=== PATIENT | female | born 1975 | race Caucasian/White ===

== ENCOUNTER 2016-07-28 11:39 | Emergency (ER) | payer SELFPAY ==
[~2016-07-28] VITALS: Ht 160 cm; Wt 92.0 kg
[2016-07-28 11:41] VITALS: BP 144/94; PULSE 108; RESP 15; TEMP 98.5; O2SAT 98
--- NOTE | 2016-07-28 11:43 | PD ---
Physical Exam Time Seen by Provider: 11:41 Narrative 40 y/o female presents for evaluation of cough, some pain when she coughs. Cough is nonproductive. Endorses nasal congestion. Symptom duration 5 days. Vital signs reviewed. Seen at triage desk. Awaiting bed placement. Data Data Last Documented VS Vital Signs Date Time Temp Pulse Resp B/P Pulse Ox O2 Delivery O2 Flow Rate FiO2 07/28/16 11:41 98.5 108 15 144/94 98 MDM Medical Record Reviewed: Yes Supervised Visit with YUNG: No Scripts No Active Prescriptions or Reported Meds David Zuniga July 28, 2016 11:43
--- NOTE | 2016-07-28 11:53 | PD ---
HPI Chief Complaint: Cold / Flu Symptoms Time Seen by Provider: 11:52 Travel History International Travel<30 days: No Contact w/Intl Traveler<30days: No Traveled to known affect area: No History of Present Illness HPI 40-year-old female came to the emergency room with history of pleuritic right- sided chest pain. Patient says that she has been coughing for past 3-4 days. Her came in for same complain and is being seen as well. They drove from [place] last week and are here on vacation. Patient says that she started developing right-sided chest pain especially when she coughs. Started yesterday and the pain is worse today. She is not bringing out any phlegm. She is otherwise a healthy person. Patient is a smoker. She said yesterday she had fever and chills although she did not take her temperature. Currently she is afebrile. She did take Advil and Tylenol PM this morning. PFSH Past Medical History Narrative Medical List of her home medications reviewed from the nursing note. Diminished Hearing: No GERD: Yes Genitourinary: Yes (UTI, KIDNEY INFECTION) Kidney Stones: Yes Pneumonia: Yes ?: Not LMP: now : 5 Para: 5 Social History Alcohol Use: No Tobacco Use: Yes (<1 ppd) Substance Use: No Allergies-Medications (Allergen,Severity, Reaction): Coded Allergies: No Known Allergies (Unverified , 07/28/16) Comments No known drug allergies. Reported Meds & Prescriptions Reported Meds & Active Scripts Active Ventolin Hfa 18 GM Inh (Albuterol Sulfate) 90 Mcg/Act Aer 2 Puff INH Q4-6H PRN Ibuprofen 600 Mg Tab 600 Mg PO Q6H PRN 7 Days Zithromax Z-Mekhi (Azithromycin) 250 Mg Dspk 250 Mg PO DIRECTED 500 MG (2 tabs) day 1, then 1 tab days 2-5. Narrative Medication List of her home medications reviewed from the nursing note. Review of Systems Except as stated in HPI: all other systems reviewed are Neg Physical Exam Narrative GENERAL: Awake, alert, anxious, mild distress SKIN: Focused skin assessment warm/dry. HEAD: Atraumatic. Normocephalic. EYES: Pupils equal and round. No scleral icterus. No injection or drainage. ENT: No nasal bleeding or discharge. Mucous membranes pink and moist. NECK: Trachea midline. No JVD. CARDIOVASCULAR: Regular rate and rhythm. No murmur appreciated. RESPIRATORY: No accessory muscle use. Clear to auscultation. Breath sounds equal bilaterally. GASTROINTESTINAL: Abdomen soft, non-tender, nondistended. Hepatic and splenic margins not palpable. MUSCULOSKELETAL: No obvious deformities. No clubbing. No cyanosis. No edema. NEUROLOGICAL: Awake and alert. No obvious cranial nerve deficits. Motor grossly within normal limits. Normal speech. PSYCHIATRIC: Appropriate mood and affect; insight and judgment normal. Data Data Last Documented VS Vital Signs Date Time Temp Pulse Resp B/P Pulse Ox O2 Delivery O2 Flow Rate FiO2 07/28/16 13:04 98 Room Air 07/28/16 11:41 98.5 108 15 144/94 Orders Chest, Pa & Lat (07/28/16 ) Albuterol Neb (Albuterol Neb) (07/28/16 12:00) Ibuprofen (Motrin) (07/28/16 12:00) Electrocardiogram (07/28/16 11:58) Basic Metabolic Panel (Bmp) (07/28/16 11:58) Complete Blood Count With Diff (07/28/16 11:58) Troponin I (07/28/16 11:58) Ecg Monitoring (07/28/16 11:58) Bilateral Bp Monitoring (07/28/16 11:58) Iv Access Insert/Monitor (07/28/16 11:58) Oximetry (07/28/16 11:58) Oxygen Administration (07/28/16 11:58) Sodium Chloride 0.9% Flush (Ns Flush) (07/28/16 12:00) Blood Culture (07/28/16 12:44) Ceftriaxone Inj (Rocephin Inj) (07/28/16 12:45) Azithromycin Inj (Zithromax Inj) (07/28/16 12:45) Morphine Inj (Morphine Inj) (07/28/16 13:30) Labs Laboratory Tests Test 07/28/16 12:40 White Blood Count 4.1 TH/MM3 Red Blood Count 4.42 MIL/MM3 Hemoglobin 14.7 GM/DL Hematocrit 42.6 % Mean Corpuscular Volume 96.4 FL Mean Corpuscular Hemoglobin 33.2 PG Mean Corpuscular Hemoglobin 34.4 % Concent Red Cell Distribution Width 12.7 % Platelet Count 182 TH/MM3 Mean Platelet Volume 8.7 FL Neutrophils (%) (Auto) 65.2 % Lymphocytes (%) (Auto) 20.1 % Monocytes (%) (Auto) 12.8 % Eosinophils (%) (Auto) 1.3 % Basophils (%) (Auto) 0.6 % Neutrophils # (Auto) 2.7 TH/MM3 Lymphocytes # (Auto) 0.8 TH/MM3 Monocytes # (Auto) 0.5 TH/MM3 Eosinophils # (Auto) 0.1 TH/MM3 Basophils # (Auto) 0.0 TH/MM3 CBC Comment DIFF FINAL Differential Comment Sodium Level 139 MEQ/L Potassium Level 4.4 MEQ/L Chloride Level 106 MEQ/L Carbon Dioxide Level 25.5 MEQ/L Anion Gap 8 MEQ/L Blood Urea Nitrogen 17 MG/DL Creatinine 0.99 MG/DL Estimat Glomerular Filtration 62 ML/MIN Rate Random Glucose 102 MG/DL Calcium Level 8.3 MG/DL Troponin I LESS THAN 0.02 NG/ML MDM Medical Decision Making Medical Screen Exam Complete: Yes Emergency Medical Condition: Yes Medical Record Reviewed: Yes Interpretation(s) Twelve-lead EKG was reviewed by me. Sinus rhythm, normal axis, nonspecific ST- T wave changes. Heart rate of 82 bpm. Differential Diagnosis PE, pneumonia, nonspecific chest, bronchitis, COPD exacerbation Narrative Course 1 PM initially I had ordered a d-dimer since patient has a lower risk for PE. However the chest x-ray came back and shows infiltrate in the right upper and middle lobe. In which case that coincides with the location of her chest pain. I have canceled the d-dimer. Awaiting for the rest of the blood test results to come back. Ordered Motrin for her pain and albuterol nebulizer as well. 2 PM patient was given IV Rocephin and IV Zithromax for the pneumonia. She asked for something stronger for pain and I had ordered morphine. Labs are back and within acceptable limits. I will discharge her home. Procedures EKG Prior to Arrival: No Diagnosis Primary Impression: Pneumonia Qualified Code: J18.9 - Pneumonia of right lung due to infectious organism, unspecified part of lung Additional Impression: Pleuritic chest pain Referrals: Primary Care Physician 1 week Additional Instructions: Please return to the ER if the condition worsens or any other new concerns. Otherwise follow-up with your primary care. The body aches as per the prescription directions. Med/Other Pt SpecificInfo: Prescription(s) given Scripts Albuterol 18 GM Inh (Ventolin Hfa 18 GM Inh)90 Mcg/Act Aer2 Puff INH Q4-6H PRN ( SHORTNESS OF BREATH) #1 INHALER Ref 0 Prov:Murali Roman MD 07/28/16 Ibuprofen 600 Mg [id number] Mg PO Q6H PRN (Pain/Inflammation) 7 Days Ref 0 Prov:Murali Roman MD 07/28/16 Azithromycin (Zithromax Z-Mekhi)250 Mg [id number] Mg PO DIRECTED #1 DSPK Ref 0 500 MG (2 tabs) day 1, then 1 tab days 2-5. Prov:Murali Roman MD 07/28/16 Disposition: 01 DISCHARGE HOME Condition: Stable Murali Roman MD July 28, 2016 11:53
[2016-07-28] MEDS ORDERED: RESP: ALBUTEROL 2.5 MG/3 ML NEB (SCH) NEB ONE (12:00)
[2016-07-28] MEDS ORDERED: IBUPROFEN 800 MG TAB PO ONE (12:00)
[2016-07-28] MEDS ORDERED: SODIUM CHLORIDE 0.9% FLUSH 10 ML FLUSH IVF PRN (12:00)
--- NOTE | 2016-07-28 12:43 | RADRPT ---
EXAM DATE/TIME: 07/28/2016 12:31 [facility] COMPARISON: No previous studies available for comparison. INDICATIONS : Cough for 4 days and chest pain. MEDICAL HISTORY : Asthma. Smoker. SURGICAL HISTORY : None. ENCOUNTER: Initial ACUITY: 4 - 6 days PAIN SCORE: 9/10 LOCATION: Right lower chest FINDINGS: There is mild infiltrate in the right midlung. No evidence of effusion. Cardiac contours are satisfac tory. Thoracic skeleton is intact. CONCLUSION: Mild right upper and middle lobe infiltrate. Eagle Hull MD on July 28, 2016 at 12:39 Board Certified Radiologist. This report was verified electronically.
[2016-07-28] MEDS ORDERED: cefTRIAXone INJ 1,000 MG in SODIUM CHLORIDE 0.9% INJ 50 ML IV ONE (12:45)
[2016-07-28] MEDS ORDERED: AZITHROMYCIN INJ 500 MG in SODIUM CHLOR 0.9% 250 ML INJ 250 ML IV ONE (12:45)
[2016-07-28 13:07] LABS: AUTOMATED NEUTROPHIL # 2.7 TH/MM3 (1.8-7.7); BASOPHIL % 0.6 % (0.0-2.0); EOSINOPHIL # 0.1 TH/MM3 (0-0.4); EOSINOPHIL % 1.3 % (0.0-4.0); HEMATOCRIT 42.6 % (35.0-46.0); HEMO FLAGS DIFF FINAL; LYMPH % 20.1 % (9.0-44.0); LYMPHOCYTE # 0.8 TH/MM3 (1.0-4.8); MEAN CELL VOLUME 96.4 FL (80.0-100.0); MEAN CORPUSCULAR HEMOGLOBIN 33.2 PG (27.0-34.0); MEAN CORPUSCULAR HGB CONC 34.4 % (32.0-36.0); MONO % 12.8 % (0.0-8.0); NEUT % 65.2 % (16.0-70.0); PLATELET COUNT 182 TH/MM3 (150-450); RED BLOOD COUNT 4.42 MIL/MM3 (4.00-5.30); RED CELL DISTRIBUTION WIDTH 12.7 % (11.6-17.2); WHITE BLOOD COUNT 4.1 TH/MM3 (4.0-11.0)
[2016-07-28] MEDS ORDERED: MORPHINE SULFATE 4 MG/ML INJ IV PUSH ONE (13:30)
[2016-07-28 13:49] LABS: ANION GAP 8 MEQ/L (5-15); BICARBONATE 25.5 MEQ/L (21.0-32.0); BLOOD UREA NITROGEN 17 MG/DL (7-18); CHLORIDE 106 MEQ/L (98-107); GLOMERULAR FILTRATION RATE 62 ML/MIN (>89); SODIUM (NA) 139 MEQ/L (136-145)
[2016-07-28 13:50] LABS: POTASSIUM 4.4 MEQ/L (3.5-5.1)
[2016-07-28] MEDS ORDERED: ZITHTAB PO (14:01)
[2016-07-28] MEDS ORDERED: IBUP-232 PO (14:03)
[2016-07-28] MEDS ORDERED: VENTAER INH (14:03)
--- NOTE | 2016-07-29 18:50 | EKG ---
Date Performed: 07/28/2016 Time Performed: 12:48:03 PTAGE: 40 years EKG: Sinus rhythm MINIMAL VOLTAGE CRITERIA FOR LVH, CONSIDER NORMAL VARIANT BORDERLINE ECG NO PREVIOUS TRACING DOCTOR: Paulo Sin Interpretating Date/Time 07/29/2016 18:44:46
== END 2016-07-28 14:56 | disposition home or self-care (01) ==
LOC: NEPD 11:39
DX: J18.9 Pneumonia, unspecified organism (principal); R07.81 Pleurodynia; R94.31 Abnormal electrocardiogram [ECG] [EKG]; Z72.0 Tobacco use; Z87.19 Personal history of other diseases of the digestive system; Z87.448 Personal history of other diseases of urinary system; Z87.01 Personal history of pneumonia (recurrent)
CPT/HCPCS: 71020; 80048; 84484; 85025; 87040; 93005; 94664; 96365; 96375; 99284; J0456; J0696; J2270; J7050; J7613

== ENCOUNTER 2016-08-02 12:33 | Emergency (ER) | payer SELFPAY ==
[~2016-08-02] VITALS: Ht 160 cm; Wt 100.0 kg
[~2016-08-02 12:33] MED LIST: IBUP-232 PO; VENTAER INH; ZITHTAB PO
[2016-08-02 12:34] VITALS: BP 141/98; PULSE 89; RESP 17; TEMP 97.6; O2SAT 98
--- NOTE | 2016-08-02 12:53 | PD ---
HPI Chief Complaint: Respiratory Symptoms Time Seen by Provider: 12:50 Travel History International Travel<30 days: No Contact w/Intl Traveler<30days: No Traveled to known affect area: No History of Present Illness HPI Patient is a 40-year-old female presenting to emergency evaluation of shortness of breath and left-sided rib pain. Patient states she was diagnosed with pneumonia one week ago, completed a full course of antibiotics and has been using an albuterol inhaler however she continues to have a productive cough with black sputum per her report. She denies any fevers. Reports chills and shortness of breath. She last used her inhaler this morning. She denies any other complaints at this time, no dizziness, no chest pain, no headaches, no abdominal pain, no nausea, vomiting, no diarrhea. Patient continues to smoke intermittently but has significantly reduced her intake. [facility] Past Medical History Asthma: Yes Diminished Hearing: No GERD: Yes Genitourinary: Yes (UTI, KIDNEY INFECTION) Kidney Stones: Yes Pneumonia: Yes ?: Not : 5 Para: 5 Social History Alcohol Use: No Tobacco Use: Yes (<1 ppd) Substance Use: No Allergies-Medications (Allergen,Severity, Reaction): Coded Allergies: No Known Allergies (Unverified , 07/28/16) Reported Meds & Prescriptions Reported Meds & Active Scripts Active Ventolin Hfa 18 GM Inh (Albuterol Sulfate) 90 Mcg/Act Aer 2 Puff INH Q4-6H PRN Review of Systems Except as stated in HPI: all other systems reviewed are Neg General / Constitutional: Positive: Chills, No: Fever HENT: No: Headaches, Lightheadedness Cardiovascular: No: Chest Pain or Discomfort, Dyspnea on exertion Respiratory: Positive: Cough, Shortness of Breath, Wheezing, Pleuritic Pain Gastrointestinal: No: Nausea, Vomiting, Abdominal Pain Musculoskeletal: No: Myalgias Neurologic: No: Weakness, Dizziness Physical Exam Narrative GENERAL: Well-developed, well-nourished, alert female. Resting comfortably in no acute distress. SKIN: Focused skin assessment warm/dry. HEAD: Atraumatic. Normocephalic. EYES: Pupils equal and round. No scleral icterus. No injection or drainage. ENT: No nasal bleeding or discharge. Mucous membranes pink and moist. NECK: Trachea midline. No JVD. CARDIOVASCULAR: Regular rate and rhythm. No murmur appreciated. RESPIRATORY: No accessory muscle use. Clear to auscultation. Breath sounds equal bilaterally. GASTROINTESTINAL: Abdomen soft, non-tender, nondistended. Hepatic and splenic margins not palpable. MUSCULOSKELETAL: No obvious deformities. No clubbing. No cyanosis. No edema. NEUROLOGICAL: Awake and alert. No obvious cranial nerve deficits. Motor grossly within normal limits. Normal speech. PSYCHIATRIC: Appropriate mood and affect; insight and judgment normal. Data Data Last Documented VS Vital Signs Date Time Temp Pulse Resp B/P Pulse Ox O2 Delivery O2 Flow Rate FiO2 08/02/16 13:00 80 20 98 Room Air 08/02/16 12:34 97.6 141/98 Orders Complete Blood Count With Diff (08/02/16 12:47) Basic Metabolic Panel (Bmp) (08/02/16 12:47) Iv Access Insert/Monitor (08/02/16 12:47) Ecg Monitoring (08/02/16 12:47) Oximetry (08/02/16 12:47) Oxygen Administration (08/02/16 12:47) Chest, Pa & Lat (08/02/16 12:47) Sodium Chloride 0.9% Flush (Ns Flush) (08/02/16 13:00) Methylprednisolone So Succ Inj (Solumedr (08/02/16 13:00) Albuterol-Ipratropium Neb (Duoneb Neb) (08/02/16 13:00) Sodium Chlor 0.9% 1000 Ml Inj (Ns 1000 M (08/02/16 14:15) Labs Laboratory Tests Test 08/02/16 12:50 White Blood Count 7.6 TH/MM3 Red Blood Count 4.67 MIL/MM3 Hemoglobin 14.9 GM/DL Hematocrit 44.0 % Mean Corpuscular Volume 94.2 FL Mean Corpuscular Hemoglobin 31.9 PG Mean Corpuscular Hemoglobin 33.9 % Concent Red Cell Distribution Width 12.1 % Platelet Count 222 TH/MM3 Mean Platelet Volume 7.8 FL Neutrophils (%) (Auto) 58.2 % Lymphocytes (%) (Auto) 33.0 % Monocytes (%) (Auto) 6.3 % Eosinophils (%) (Auto) 1.9 % Basophils (%) (Auto) 0.6 % Neutrophils # (Auto) 4.4 TH/MM3 Lymphocytes # (Auto) 2.5 TH/MM3 Monocytes # (Auto) 0.5 TH/MM3 Eosinophils # (Auto) 0.1 TH/MM3 Basophils # (Auto) 0.0 TH/MM3 CBC Comment DIFF FINAL Differential Comment Sodium Level 138 MEQ/L Potassium Level 4.3 MEQ/L Chloride Level 103 MEQ/L Carbon Dioxide Level 28.4 MEQ/L Anion Gap 7 MEQ/L Blood Urea Nitrogen 22 MG/DL Creatinine 1.09 MG/DL Estimat Glomerular Filtration 56 ML/MIN Rate Random Glucose 108 MG/DL Calcium Level 9.0 MG/DL [facility] Medical Decision Making Medical Screen Exam Complete: Yes Emergency Medical Condition: Yes Medical Record Reviewed: Yes Interpretation(s) Laboratory Tests Test 08/02/16 12:50 White Blood Count 7.6 TH/MM3 Red Blood Count 4.67 MIL/MM3 Hemoglobin 14.9 GM/DL Hematocrit 44.0 % Mean Corpuscular Volume 94.2 FL Mean Corpuscular Hemoglobin 31.9 PG Mean Corpuscular Hemoglobin 33.9 % Concent Red Cell Distribution Width 12.1 % Platelet Count 222 TH/MM3 Mean Platelet Volume 7.8 FL Neutrophils (%) (Auto) 58.2 % Lymphocytes (%) (Auto) 33.0 % Monocytes (%) (Auto) 6.3 % Eosinophils (%) (Auto) 1.9 % Basophils (%) (Auto) 0.6 % Neutrophils # (Auto) 4.4 TH/MM3 Lymphocytes # (Auto) 2.5 TH/MM3 Monocytes # (Auto) 0.5 TH/MM3 Eosinophils # (Auto) 0.1 TH/MM3 Basophils # (Auto) 0.0 TH/MM3 CBC Comment DIFF FINAL Differential Comment Sodium Level 138 MEQ/L Potassium Level 4.3 MEQ/L Chloride Level 103 MEQ/L Carbon Dioxide Level 28.4 MEQ/L Anion Gap 7 MEQ/L Blood Urea Nitrogen 22 MG/DL Creatinine 1.09 MG/DL Estimat Glomerular Filtration 56 ML/MIN Rate Random Glucose 108 MG/DL Calcium Level 9.0 MG/DL Vital Signs Date Time Temp Pulse Resp B/P Pulse Ox O2 Delivery O2 Flow Rate FiO2 08/02/16 12:34 97.6 89 17 141/98 98 Differential Diagnosis Pneumonia versus bronchitis versus postinfectious cough versus pleuritic pain versus pleurisy versus other Narrative Course Patient is a 40-year-old female presenting to emergency for reevaluation after having been diagnosed with pneumonia one week ago. Upon review of medical records patient was diagnosed with right middle and upper lobe pneumonia, placed on antibiotics and given albuterol inhaler. She reports compliance with prescribed therapy. She presents today complaining of shortness of breath and pleuritic rib pain. Chest x-ray, labs, nebulizer treatments ordered and pending. Patient's vital signs are stable, she is well oxygenated on room air and afebrile. Chest x-ray shows mild underaeration otherwise unremarkable CBC is unremarkable, chemistries with mildly elevated BUN and creatinine, patient will be given 1 L of IV fluids prior to discharge. Patient will be discharged with cough medication, she is advised to obtain over- the-counter Mucinex DM. She is encouraged follow-up with primary care, continue to avoid tobacco use. She is advised to return to emergency department for any new or worsening symptoms. Patient verbalized understanding of instructions. Patient stable for discharge. Diagnosis Primary Impression: Pleuritic chest pain Additional Impression: Respiratory tract congestion with cough Referrals: Primary Care Physician Patient Instructions: Acute Cough (GEN), Community Acquired Pneumonia (ED), General Instructions Additional Instructions: Follow-up with your primary doctor Take medications as directed Do not drive or operate machinery while taking narcotic cough medicine Return to emergency department for any new or worsening symptoms Continue to avoid tobacco use Med/Other Pt SpecificInfo: Prescription(s) given Scripts Methylprednisolone Dosepak (Medrol Dosepak)4 Mg Dspk4 Mg PO DIRECTED #1 DSPK Ref 0 Per Pharmacist direction Prov:Stephanie Taylor 08/02/16 Doxycycline Hyclate 100 Mg Hrr622 Mg PO BID #20 CAP Ref 0 Prov:Stephanie Taylor 08/02/16 Hydrocodone-Homatropine Liq 5-1.5 Mg/5 Ml Syrp5 Ml PO Q4H PRN (COUGH) #180 ML Ref 0 Prov:Betty Shin DO 08/02/16 Disposition: 01 DISCHARGE HOME Condition: Stable Stephanie Taylor August 02, 2016 12:52
[2016-08-02] MEDS ORDERED: SODIUM CHLORIDE 0.9% FLUSH 10 ML FLUSH IVF PRN (13:00)
[2016-08-02] MEDS ORDERED: methylPREDNISolone SOD SUCC 125 MG/2 ML VIAL IVP ONE (13:00)
[2016-08-02] MEDS: RESP: ALBUTEROL 2.5 MG/IPRATROPIUM 0.5 MG NEB (SCH) INH ×2 (13:04→13:05)
[2016-08-02 13:15] LABS: AUTOMATED NEUTROPHIL # 4.4 TH/MM3 (1.8-7.7); BASOPHIL % 0.6 % (0.0-2.0); EOSINOPHIL # 0.1 TH/MM3 (0-0.4); EOSINOPHIL % 1.9 % (0.0-4.0); HEMO FLAGS DIFF FINAL; LYMPHOCYTE # 2.5 TH/MM3 (1.0-4.8); MEAN CELL VOLUME 94.2 FL (80.0-100.0); MEAN CORPUSCULAR HEMOGLOBIN 31.9 PG (27.0-34.0); MEAN CORPUSCULAR HGB CONC 33.9 % (32.0-36.0); MONO % 6.3 % (0.0-8.0); NEUT % 58.2 % (16.0-70.0); PLATELET COUNT 222 TH/MM3 (150-450); RED BLOOD COUNT 4.67 MIL/MM3 (4.00-5.30); RED CELL DISTRIBUTION WIDTH 12.1 % (11.6-17.2); WHITE BLOOD COUNT 7.6 TH/MM3 (4.0-11.0)
--- NOTE | 2016-08-02 13:26 | RADRPT ---
EXAM DATE/TIME: 08/02/2016 13:01 [facility] COMPARISON: CHEST PA & LAT, July 28, 2016, 12:31. INDICATIONS : Cough and chest pain for 8 days, pain was on the right but is now on the left side, short of breath MEDICAL HISTORY : asthma, smoker SURGICAL HISTORY : None. ENCOUNTER: [facility] ACUITY: 1 week PAIN SCORE: 8/10 LOCATION: Left chest FINDINGS: The lungs are under aerated. Minimal bibasilar parenchymal changes are noted with mild prominence to the interstitium. Heart is minimally enlarged. There is no pneumothorax. CONCLUSION: Under aerated with mild prominence to the interstitium. This may all be related to under aeration. King Licona MD FACR on August 02, 2016 at 13:16 Board Certified Radiologist. This report was verified electronically.
[2016-08-02 13:42] LABS: BICARBONATE 28.4 MEQ/L (21.0-32.0); POTASSIUM 4.3 MEQ/L (3.5-5.1)
[2016-08-02] MEDS ORDERED: HYDR5SYP10 PO (14:15)
[2016-08-02] MEDS ORDERED: SODIUM CHLOR 0.9% 1000 ML INJ 1,000 ML IV ONE (14:15)
[2016-08-02] MEDS ORDERED: MEDR4PAK PO (14:17)
[2016-08-02] MEDS ORDERED: DOXY100C PO (14:17)
[2016-08-02 15:24] VITALS: BP 132/70
== END 2016-08-02 15:39 | disposition home or self-care (01) ==
LOC: NEPC 12:33
DX: R07.81 Pleurodynia (principal); Z87.442 Personal history of urinary calculi; R09.89 Other specified symptoms and signs involving the circulatory and respiratory systems; J45.909 Unspecified asthma, uncomplicated
CPT/HCPCS: 71020; 80048; 85025; 94640; 94664; 96361; 96374; 99283; J2930; J7030

== ENCOUNTER 2016-10-22 15:52 | Emergency (ER) | payer SELFPAY ==
[~2016-10-22] VITALS: Ht 160 cm; Wt 90.0 kg
[~2016-10-22 15:52] MED LIST changes: +DOXY100C PO; +HYDR5SYP10 PO; -IBUP-232 PO; +MEDR4PAK PO; -ZITHTAB PO
[2016-10-22 15:55] VITALS: BP 169/113; PULSE 87; RESP 22; TEMP 98.5; O2SAT 97
--- NOTE | 2016-10-22 19:19 | PD ---
HPI Chief Complaint: Chest Pain Time Seen by Provider: 19:19 Travel History International Travel<30 days: No Contact w/Intl Traveler<30days: No Traveled to known affect area: No History of Present Illness HPI 41-year-old female with history of asthma presents to the emergency department for evaluation of right neck pain. Patient states that about 4 days ago she had a pain in her right chest that felt like she is getting pneumonia. This resolved on its own but she has had a pain in the right side of her neck. She states it feels like it is on the inside. Denies any difficulty swallowing. States the pain is not exacerbated with movement or touch. It is constant, worse at night. He has no recent illnesses, fever, or chills. No other symptoms to report. Patient states she does smoke tobacco cigarettes, 2 packs per day. PFSH Past Medical History Asthma: Yes Diminished Hearing: No GERD: Yes Genitourinary: Yes (UTI, KIDNEY INFECTION) Kidney Stones: Yes Pneumonia: Yes ?: Not LMP: 09/2016 : 5 Para: 5 Social History Alcohol Use: No Tobacco Use: Yes (<1 ppd) Substance Use: No Allergies-Medications (Allergen,Severity, Reaction): Coded Allergies: No Known Allergies (Unverified , 10/22/16) Reported Meds & Prescriptions Reported Meds & Active Scripts Active Naprosyn (Naproxen) 500 Mg Tab 500 Mg PO BID PRN Review of Systems Except as stated in HPI: all other systems reviewed are Neg Physical Exam Narrative GENERAL: Well-nourished, well-developed female patient in no acute distress SKIN: Focused skin assessment warm/dry. HEAD: Normocephalic. EYES: No scleral icterus. No injection or drainage. NECK: Supple, trachea midline. No JVD or lymphadenopathy. No limitations range of motion. No cervical spine tenderness to palpation. CARDIOVASCULAR: Regular rate and rhythm without murmurs, gallops, or rubs. RESPIRATORY: Breath sounds coarse equal bilaterally. No accessory muscle use. GASTROINTESTINAL: Abdomen soft, non-tender, nondistended. MUSCULOSKELETAL: No cyanosis, or edema. BACK: Nontender without obvious deformity. No CVA tenderness. Data Data Last Documented VS Vital Signs Date Time Temp Pulse Resp B/P Pulse Ox O2 Delivery O2 Flow Rate FiO2 10/22/16 22:54 98.2 81 16 142/65 97 10/22/16 19:28 Room Air Orders Electrocardiogram (10/22/16 ) Chest, Single Ap (10/22/16 ) Ketorolac Inj (Toradol Inj) (10/22/16 19:30) Albuterol-Ipratropium Neb (Duoneb Neb) (10/22/16 19:45) Ct Soft Tiss Neck W Iv Cont (10/22/16 ) Iv Access Insert/Monitor (10/22/16 20:16) Iohexol 350 Inj (Omnipaque 350 Inj) (10/22/16 21:11) Dexamethasone Inj (Decadron Inj) (10/22/16 21:45) Sodium Chlor 0.9% 1000 Ml Inj (Ns 1000 M (10/22/16 21:45) [facility] Medical Decision Making Medical Screen Exam Complete: Yes Emergency Medical Condition: Yes Medical Record Reviewed: Yes Differential Diagnosis Muscle strain versus lymphadenopathy versus neoplasm versus herpetic neuralgia Narrative Course 41-year-old female presents to emergency department for evaluation. Patient appears without distress. She reports a pain on the inside of her right neck, not exacerbated or elicited with palpation or movement. X-ray imaging of the chest is without acute concern. I going to discuss findings with patient and she goes very concerned that something is really wrong with her neck. I offered CT at this time. This is complete Last Impressions Neck CT 10/22/16 0000 Signed Impressions: Service Date/Time: Saturday, October 22, 2016 20:58 - CONCLUSION: 1. Borderline enlarged lymph nodes the parapharyngeal space with mildly prominent lymphoid tissue in Waldeyer's ring. No evidence for abscess. Mario Fuentes MD Chest X-Ray 10/22/16 0000 Signed Impressions: Service Date/Time: Saturday, October 22, 2016 19:37 - CONCLUSION: 1. No acute findings. Mario Fuentes MD Ears no enlarged lymph node in the parapharyngeal space with mildly prominent lymphoid tissue. This is discussed with the patient. She is encouraged follow- up primary care provider. She is given an injection of Decadron. Agrees to return immediately with any acute worsening of symptoms. Diagnosis Primary Impression: Lymphadenopathy Additional Impression: Neck pain on right side Referrals: Primary Care Physician Patient Instructions: General Instructions, Lymphadenopathy (ED) Additional Instructions: It is important that you establish care with primary care provider Follow-up for reevaluation as necessary in an outpatient setting Return immediately with any acute worsening symptoms Med/Other Pt SpecificInfo: Prescription(s) given Scripts Naproxen (Naprosyn)500 Mg [id number] Mg PO BID PRN (PAIN SCALE 1 TO 10) #30 TAB Ref 0 Prov:Kandace Lobato 10/22/16 Disposition: 01 DISCHARGE HOME Condition: Stable Kandace Lobato Oct 22, 2016 19:19
[2016-10-22] MEDS ORDERED: KETOROLAC TROMETHAMINE 60 MG/2 ML (IM) VIAL IM ONE (19:30)
--- NOTE | 2016-10-22 19:40 | RADRPT ---
EXAM DATE/TIME: 10/22/2016 19:37 [facility] COMPARISON: No previous studies available for comparison. INDICATIONS : Cough, congestion, and chest pain. MEDICAL HISTORY : Asthma. SURGICAL HISTORY : None. ENCOUNTER: Initial ACUITY: 1 day PAIN SCORE: 3/10 LOCATION: chest FINDINGS: A single view of the chest demonstrates the lungs to be symmetrically aerated without evidence of mas s, infiltrate or effusion. The cardiomediastinal contours are mildly prominent. Osseous structures a re intact. CONCLUSION: 1. No acute findings. Mario Fuentes MD on October 22, 2016 at 19:37 Board Certified Radiologist. This report was verified electronically.
[2016-10-22] MEDS ORDERED: RESP: ALBUTEROL 2.5 MG/IPRATROPIUM 0.5 MG NEB (SCH) NEB ONE (19:45)
[2016-10-22 21:05] VITALS: RESP 16
[2016-10-22] MEDS ORDERED: IOHEXOL 350 MG/ML 10 ML VIAL (for RAD DIAG) IV ONE (21:11)
--- NOTE | 2016-10-22 21:32 | RADRPT ---
EXAM DATE/TIME: 10/22/2016 20:58 [facility] COMPARISON: No previous studies available for comparison. INDICATIONS : Throat pain. IV CONTRAST: 65 cc Omnipaque 350 (iohexol) IV RADIATION DOSE: 15.65 CTDIvol (mGy) MEDICAL HISTORY : None SURGICAL HISTORY : None. ENCOUNTER: Initial ACUITY: 4 - 6 days PAIN SCALE: 7/10 LOCATION: Right throat. TECHNIQUE: Volumetric scanning of the neck was performed. Using automated exposure control and adjustment of th e mA and/or kV according to patient size, radiation dose was kept as low as reasonably achievable to obtain optimal diagnostic quality images. DICOM format image data is available electronically for r eview and comparison. FINDINGS: There is a retention cyst in the right maxillary sinus. There are borderline enlarged lymph nodes in the parapharyngeal space bilaterally. No abnormal fluid collections are seen to suggest abscess forma tion. Lymphoid tissue in Waldeyer's ring is mildly prominent. Subcentimeter nodule present left lobe thyroid gland. No airway obstructing lesions or foreign bodies . No acute bony abnormalities. CONCLUSION: 1. Borderline enlarged lymph nodes the parapharyngeal space with mildly prominent lymphoid tissue in Waldeyer's ring. No evidence for abscess. Mario Fuentes MD on October 22, 2016 at 21:25 Board Certified Radiologist. This report was verified electronically.
[2016-10-22] MEDS ORDERED: NAPR500 PO (21:40)
[2016-10-22] MEDS ORDERED: DEXAMETHASONE SOD PHOS 4 MG/ML VIAL IV PUSH ONE (21:45)
[2016-10-22] MEDS ORDERED: SODIUM CHLOR 0.9% 1000 ML INJ 1,000 ML IV ONE (21:45)
[2016-10-22 22:54] VITALS: BP 142/65; TEMP 98.2
--- NOTE | 2016-10-23 15:55 | EKG ---
Date Performed: 10/22/2016 Time Performed: 16:20:25 PTAGE: 41 years EKG: Sinus rhythm WITH SHORT AK INTERVAL MINIMAL VOLTAGE CRITERIA FOR LVH, CONSIDER NORMAL VARIANT BORDERLINE ECG PREVIOUS TRACING : 07/28/2016 12.48 Since previous tracing, AK interval slightly shorter. Other [place], no significant change. DOCTOR: Renan Oro Interpretating Date/Time 10/23/2016 15:54:23
== END 2016-10-22 22:55 | disposition home or self-care (01) ==
LOC: NEPD 15:52
DX: R59.1 Generalized enlarged lymph nodes (principal); M54.2 Cervicalgia; F17.210 Nicotine dependence, cigarettes, uncomplicated
CPT/HCPCS: 70491; 71010; 93005; 94664; 96361; 96372; 96374; 99284; J1100; J1885; J7030; Q9967

== ENCOUNTER 2017-01-30 20:21 | Emergency (ER) | payer SELFPAY ==
[~2017-01-30] VITALS: Ht 160 cm; Wt 90.0 kg
[~2017-01-30 20:21] MED LIST changes: -DOXY100C PO; -HYDR5SYP10 PO; -MEDR4PAK PO; +NAPR500 PO; -VENTAER INH
[2017-01-30 20:22] VITALS: BP 154/102; PULSE 97; RESP 16; TEMP 98.6; O2SAT 99
[2017-01-30] MEDS ORDERED: ACETAMINOPHEN/HYDROcodone 325 MG/5 MG TAB PO ONE (21:00)
[2017-01-30] MEDS ORDERED: CYCLOBENZAPRINE HCL 10 MG TAB PO ONE (21:00)
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
--- NOTE | 2017-01-30 21:36 | RADRPT ---
EXAM DATE/TIME: 01/30/2017 21:19 [facility] COMPARISON: No previous studies available for comparison. INDICATIONS : Back pain for four days from lifting. MEDICAL HISTORY : None. SURGICAL HISTORY : None. ENCOUNTER: Initial ACUITY: 4 - 6 days PAIN SCORE: 8/10 LOCATION: Bilateral low back FINDINGS: There are five non-rib bearing vertebral bodies. The vertebral bodies are in normal alignment withou t evidence of subluxation or scoliosis. The disc spaces are maintained. The posterior elements are intact without evidence of spondylolysis. The pedicles are intact. Bony mineralization is normal. No fracture is identified. CONCLUSION: No acute disease. Osvaldo Harvey MD on January 30, 2017 at 21:33 Board Certified Radiologist. This report was verified electronically.
[2017-01-30] MEDS ORDERED: CYCL10TA PO (21:41)
[2017-01-30] MEDS ORDERED: HYDR-3533 PO (21:41)
== END 2017-01-30 21:50 | disposition home or self-care (01) ==
LOC: NEPD 20:21
DX: S39.012A Strain of muscle, fascia and tendon of lower back, initial encounter (principal); R59.1 Generalized enlarged lymph nodes; J45.909 Unspecified asthma, uncomplicated; K21.9 Gastro-esophageal reflux disease without esophagitis; F17.200 Nicotine dependence, unspecified, uncomplicated; Z87.442 Personal history of urinary calculi
CPT/HCPCS: 72110; 99284

== ENCOUNTER 2017-08-01 18:57 | Emergency (ER) | payer SELFPAY ==
[~2017-08-01] VITALS: Ht 160 cm; Wt 90.0 kg
[~2017-08-01 18:57] MED LIST changes: +CYCL10TA PO; +HYDR-3533 PO; -NAPR500 PO
[2017-08-01 19:29] VITALS: BP 160/105; PULSE 109; RESP 20; TEMP 98.3; O2SAT 99
[2017-08-01] MEDS ORDERED: DEXAMETHASONE SOD PHOS 20 MG/5 ML VIAL IV PUSH ONE (22:00)
[2017-08-01] MEDS ORDERED: KETOROLAC TROMETHAMINE 30 MG/ML (IVP) VIAL IV PUSH ONE (22:00)
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
[2017-08-01 22:28] LABS: AUTOMATED NEUTROPHIL # 5.1 TH/MM3 (1.8-7.7); BASOPHIL % 0.5 % (0.0-2.0); EOSINOPHIL # 0.1 TH/MM3 (0-0.4); EOSINOPHIL % 1.2 % (0.0-4.0); HEMATOCRIT 41.6 % (35.0-46.0); HEMOGLOBIN 14.4 GM/DL (11.6-15.3); LYMPH % 17.6 % (9.0-44.0); LYMPHOCYTE # 1.2 TH/MM3 (1.0-4.8); MEAN CELL VOLUME 95.3 FL (80.0-100.0); MEAN CORPUSCULAR HEMOGLOBIN 32.9 PG (27.0-34.0); MEAN CORPUSCULAR HGB CONC 34.5 % (32.0-36.0); MEAN PLATELET VOLUME 8.2 FL (7.0-11.0); MONO % 7.4 % (0.0-8.0); MONOCYTE # 0.5 TH/MM3 (0-0.9); NEUT % 73.3 % (16.0-70.0); PLATELET COUNT 214 TH/MM3 (150-450); RED BLOOD COUNT 4.37 MIL/MM3 (4.00-5.30); RED CELL DISTRIBUTION WIDTH 12.9 % (11.6-17.2); WHITE BLOOD COUNT 6.9 TH/MM3 (4.0-11.0)
[2017-08-01 22:47] LABS: ALBUMIN 3.1 GM/DL (3.4-5.0); ALT (GPT) 21 U/L (10-53); AST (GOT) 21 U/L (15-37); BICARBONATE 26.1 MEQ/L (21.0-32.0); BLOOD UREA NITROGEN 14 MG/DL (7-18); CHLORIDE 110 MEQ/L (98-107); CREATININE 0.88 MG/DL (0.50-1.00); GLOMERULAR FILTRATION RATE 71 ML/MIN (>89); GLUCOSE,RANDOM 119 MG/DL (74-106); SODIUM (NA) 142 MEQ/L (136-145)
[2017-08-01 22:48] LABS: ALKALINE PHOSPHATASE 72 U/L (45-117); TOTAL BILIRUBIN ADULT 0.2 MG/DL (0.2-1.0); TOTAL PROTEIN 6.8 GM/DL (6.4-8.2)
[2017-08-01] MEDS ORDERED: IOHEXOL 350 MG/ML 10 ML VIAL (for RAD DIAG) IVCONTRAST ONE (23:31)
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
[2017-08-02] MEDS ORDERED: AUGM875T3 PO (00:24)
[2017-08-02] MEDS ORDERED: IBUP1TAB7 PO (00:24)
[2017-08-02] MEDS ORDERED: AMOXICILLIN/CLAVULANATE K 875 MG TAB PO ONE (00:30)
== END 2017-08-02 01:03 | disposition home or self-care (01) ==
LOC: NEPD 18:57
DX: T20.12XA Burn of first degree of lip(s), initial encounter (principal); R22.1 Localized swelling, mass and lump, neck; T31.0 Burns involving less than 10% of body surface; X08.8XXA Exposure to other specified smoke, fire and flames, initial encounter; J45.909 Unspecified asthma, uncomplicated; K21.9 Gastro-esophageal reflux disease without esophagitis; Z87.442 Personal history of urinary calculi; F17.210 Nicotine dependence, cigarettes, uncomplicated; Z79.899 Other long term (current) drug therapy
CPT/HCPCS: 70491; 80053; 84703; 85025; 96374; 96375; 99284; J1100; J1885; Q9967